=== PATIENT | male | born 1995 | race Caucasian/White ===

== ENCOUNTER 2023-01-15 06:51 | Outpatient (REF) | payer OTHER, SELFPAY ==
[2023-01-15 11:25] LABS: MANUAL DIFF FLAG NO
[2023-01-15 12:02] LABS: Basophils Percent Auto 0.4 % (0-2); Eosinophils Absolute Auto 0.2 X10*3/uL (0.0-0.4); Eosinophils Percent Auto 2.4 % (0-4); Hematocrit 44.7 % (42.0-52.0); Hemoglobin 15.4 g/dl (14.0-18.0); Imm Gran Abs Auto 0.02 X10*3/uL (0.00-0.03); Imm Gran Pct Auto 0.3 % (0.0-0.4); Lymphocytes Absolute Auto 1.7 X10*3/uL (1.2-4.9); Lymphocytes Percent Auto 24.1 % (20-40); Mean Corpuscular HGB Conc 34.5 g/dl (31.0-36.0); Mean Corpuscular Hemoglobin 30.4 pg (27.0-33.0); Mean Corpuscular Volume 88.3 fL (80.0-98.0); Mean Platelet Volume 10.1 fL (9.4-12.4); Monocytes Absolute Auto 0.9 X10*3/uL (0.1-1.2); Monocytes Percent Auto 12.8 % (2-11); Neutrophils Absolute Auto 4.3 x10*3/uL (2.0-8.3); Platelet Count 219 X10*3/uL (160-400); Red Blood Count 5.06 X10*6/uL (4.60-5.80); Red Cell Distribution Width 12.5 % (11.0-16.0); White Blood Count 7.2 X10*3/uL (4.8-10.8)
[2023-01-15 12:38] LABS: Alanine Aminotransferase 28 U/L (0-40); Albumin Level 4.4 g/dL (3.5-5.0); Alkaline Phosphatase 60 U/L (39-117); Anion Gap 12 (12-20); Aspartate Amino Transferase 24 U/L (5-37); Blood Urea Nitrogen 15 mg/dL (9-16); Calcium 9.3 mg/dL (8.4-10.2); Carbon Dioxide 27 mmol/L (22-29); Chloride 107 mmol/L (96-108); Cholesterol 201 mg/dL; Estimated Glomerular Filt Rate > 60; Glucose Fasting 90 mg/dL (60-99); HDL Cholesterol 39 mg/dL; LDL Cholesterol Calculated 138 mg/dl; Potassium 4.1 mmol/L (3.3-5.1); Sodium 142 mmol/L (135-145); TSH reflex Free T4 1.04 uIU/mL (0.32-4.0); Total Protein 6.9 g/dL (6.5-8.0); Triglycerides 123 mg/dL
== END 2023-01-15 06:52 | disposition home or self-care (01) ==
LOC: HO.HMGCLDS 06:51
PROVIDERS: PCP Nurse Practitioner Family; Visit Provider Nurse Practitioner Family
DX: Z00.00 Encounter for general adult medical examination without abnormal findings (principal)
CPT/HCPCS: 36415; 80053; 80061; 84443; 85025

== ENCOUNTER 2023-01-16 09:12 | Outpatient (REF) | payer OTHER, SELFPAY ==
[2023-01-16 16:29] LABS: Appearance Urine Clear; Color Urine Yellow; Glucose Urine UA Negative (Negative); Leukocyte Esterase Urine Negative (Negative); Nitrite Urine Negative (Negative); Urine Blood Negative (Negative); Urine Ketones Negative (Negative); Urine Protein Negative (Neg-Trace)
== END 2023-01-16 09:13 | disposition home or self-care (01) ==
LOC: HO.HMGCLDS 09:12
PROVIDERS: PCP Nurse Practitioner Family; Visit Provider Nurse Practitioner Family
DX: R82.90 Unspecified abnormal findings in urine (principal)
CPT/HCPCS: 81003

== ENCOUNTER 2024-01-25 15:32 | Outpatient (AMB) | payer OTHER, SELFPAY ==
--- NOTE | 2024-01-25 15:43 | MHC.PC.OV ---
Vital Signs 01/25/24 15:44 Height 6 ft Weight 214 lb BMI 29.0 BP 136/84 Blood Pressure Location Lt brachial Position Sitting Pulse 76 Pulse Source Pulse Oximeter Pulse Oximetry (%) 98 Oxygen Delivery Method Room Air Intake Visit Reasons: PE Intake Note: Pt is here today for PE. Allergies No Known Allergies Allergy (Verified 01/25/24 16:50) Medication List - Last Reconciled 01/25/24 by FAYE Diaz No Known Home Meds Tobacco use date assessed: 01/25/24 Dental Screening Dental Screen Date: 01/25/24 Did you have a dental visit in the last 12 months?: Yes Did you have a dental problem in the last 6 months where you did not have access to dental care?: No Was dental information given to patient?: Patient has dentist HPI PE HPI Details Pt is here for a PE. Will order labs. Pt reports a family hx of hypertension. BP is stable toda (upper limits of normal). Will have pt monitor his blood pressure at home and drop off readings. Denies chest pain, shortness of breath, headache, dizziness, and blurred vision. Pt sees derm for acne PFSH Social History Housing: House Patient Tobacco Use Status: Former Tobacco user Quit Date: quit 10 years ago e-Cigarette/Vaping Use: Never Used Second Hand Smoke Exposure: Yes service: No Current occupational status: employed Current occupational exposures/hazards: No Cognitive needs: No Hearing needs: No Vision needs: No Questionnaire PHQ-9 Over the last 2 weeks, how often have you been bothered by any of the following problems? 1. Little interest or pleasure in doing things: not at all 2. Feeling down, depressed, or hopeless: not at all 3. Trouble falling or staying asleep, or sleeping too much: not at all 4. Feeling tired or having little energy: not at all 5. Poor appetite or overeating: not at all 6. Feeling bad about yourself - or that you are a failure or have let yourself or your family down: not at all 7. Trouble concentrating on things, such as reading the newspaper or watching television: not at all 8. Moving or speaking so slowly that other people could have noticed. Or the opposite - being so fidgety or restless that you have been moving around a lot more than usual: not at all 9. Thoughts that you would be better off or of hurting yourself in some way: not at all Total score: 0 Depression Screening Interpretation: Negative Depression Screening Done: Yes 29952 - PHQ-9 Billing: Yes Source: Developed by Drs. Venkat Messer, Carole Shin, Lokesh Oropeza and colleagues, with an educational renetta from [employer]. Thrive Questionnaire Date Thrive assessed: 01/25/24 I am a: Patient What is your living situation today?: I have a steady place to live Within the past 12 months, did the food you bought not last and you didn't have the money to get more?: Never true Within the past 12 months, did you worry whether your food would run out before you got money to buy more?: Never true Do you have trouble paying for medicines?: No Do you have trouble getting transportation to medical appointments?: No Do you have trouble paying your heating and electricity bill?: No Do you have trouble taking care of your child, family member or friend?: No Do you have trouble with day-to-day activities such as bathing, preparing meals, shopping, managing finances, etc.?: No Are you currently unemployed and looking for a job?: No Are you interested in more education?: No Please select the resources that you would like help with: None Currently or been in a relationship where the following occur: no concerns reported THRIVE Score: 0 AUDIT C Alcohol Use Questionnaire (AUDIT-C) 1. How often do you have a drink containing alcohol?: 2-4 times a month 2. How many drinks containing alcohol do you have on a typical day when you are drinking?: 1 or 2 3. How often do you have six or more drinks on one occasion?: Never Total Score: 2 Score Reviewed/Action Taken: Yes TYRA-7 AMB Questionnaire TYRA-7 Date TYRA - 7 assessed: 01/25/24 Feeling nervous, anxious, or on edge: 0 = Not at all Not being able to stop or control worryin = Not at all Worrying too much about different things: 0 = Not at all Trouble relaxin = Not at all Being so restless that it is hard to sit still: 0 = Not at all Becoming easily annoyed or irritable: 0 = Not at all Feeling afraid as if something awful might happen: 0 = Not at all Total TYRA-7 score (0-4 normal; 5-9 mild; 10-14 moderate; 15-21 severe): 0 Source: Developed by Drs. Venkat Messer, Carole Shin, Lokesh Oropeza and colleagues, with an educational renetta from [employer]. TYRA-7 Assessment Billing TYRA-7 Assessment Tool: TYRA-7 Assessment 03028 Review of Systems Const Denies chills and Denies fever(s) Eyes Denies blurry vision ENT Denies vertigo, Denies dizziness and Denies sore throat Card Denies chest pain at rest, Denies chest pain with activity, Denies diaphoresis, Denies dyspnea and Denies dyspnea on exertion Resp Denies cough, Denies dyspnea, Denies dyspnea on exertion and Denies wheezing GI Denies abdominal pain, Denies melena, Denies hematochezia, Denies constipation, Denies diarrhea and Denies loose stools Denies hematuria Musc Denies numbness and Denies tingling Skin/Breast Denies lesions Neuro Denies vertigo, Denies dizziness, Denies numbness and Denies tingling Psych Denies anxiety, Denies depression, Denies homicidal ideation, Denies suicidal ideation and Denies other (substance abuse) Aller/Immun Denies wheezing Physical exam (Primary Care) Vital Signs: Last Vital Signs Pulse 76 01/25/24 15:44 BP 136/84 01/25/24 15:44 Pulse Ox 98 01/25/24 15:44 Oxygen Delivery Method Room Air 01/25/24 15:44 BMI result Body Mass Index 29.0 Tobacco/Smoking Status: Tobacco use Status Tobacco use date assessed 01/25/24 01/25/24 15:48 Patient Tobacco Use Status Former Tobacco user 01/25/24 15:48 e-Cigarette/Vaping Use Never Used 01/25/24 15:48 PHQ-9: PHQ-9 Score PHQ-9: Total score 0 01/25/24 16:21 Depression Screening Interpretation: Negative Thrive Assessment: Date of Thrive Assessment Date Thrive assessed 01/25/24 01/25/24 15:49 Currently or been in a relationship where the following occur: no concerns reported Const General: cooperative Nutritional Appearance: well nourished Orientation/consciousness: patient oriented x3 HENMT Head: Yes normal to inspection, Yes normocephalic and Yes atraumatic Ears: TM's normal bilaterally Eyes General: appearance normal, both eyes and all related structures Alignment and Position: alignment normal and position normal Neck Neck: Yes normal visual inspection and Yes no lymphadenopathy Thyroid: Thyroid normal Resp Effort & Inspection: normal respiratory effort Auscultation: clear to auscultation bilaterally Cardio Rate: regular rate Rhythm: regular rhythm Heart sounds: S1 normal heart sound present, S2 normal heart sound present and no murmurs GI Palpation (GI): Soft to palpation and nontender Auscultation: normal bowel sounds Male General Exam: Yes normal external exam Penis: normal penis Scrotum: scrotum normal, testes descended bilaterally and no inguinal hernias Testes: no testicular mass Skin Rashes: no rashes Neuro General: patient oriented x3, moves all extremities, no focal motor deficits and deep tendon reflexes 2+ bilaterally Romberg Test: Negative Psych Appearance: grossly normal Mental Status: mental status grossly normal Speech and movement: Normal speech and movement present Affect: normal affect Attitude: cooperative Thought process: Normal thought process present Thought content: Normal thought content present Insight: Good insight present (Psych) Judgement: Good judgement present (Psych) Assessment and Plan Assessment & Plan (1) Physical exam: Code(s): Z00.00 - Encounter for general adult medical examination without abnormal findings Plan: Labs ordered (2) Elevated blood pressure reading in office with diagnosis of hypertension: Code(s): I10 - Essential (primary) hypertension Plan The patient agreed to the use of a regional medical director for this encounter. Scribed for FAYE Vazquez by Nevaeh Jefferson regional medical director, on 01/25/2024 at 16:10 EST. Orders: Orders Complete Blood Count Auto Diff Today Z00.00 - Encounter for general adult medical examination without abnormal findings TSH reflex Free T4 Today Z00.00 - Encounter for general adult medical examination without abnormal findings Comprehensive [place]. Panel Fast Today Z00.00 - Encounter for general adult medical examination without abnormal findings UA CC w/rflx Micro + Cult Today Z00.00 - Encounter for general adult medical examination without abnormal findings Lipid Panel Today Z00.00 - Encounter for general adult medical examination without abnormal findings Coding Level of Care Code Est Pt Prev Care 18-39y(79131) Diagnoses Physical exam Z00.00 Elevated blood pressure reading in office with diagnosis of hypertension I10 Additional Codes TYRA-7 Assessment Billing - TYRA-7 Assessment Tool: TYRA-7 Assessment 80847 ([id number])
[2024-01-25 15:44] VITALS: BP 136/84; PULSE 76; O2SAT 98; BMI 29.0
== END 2024-01-25 16:29 | disposition home or self-care (01) ==
PROVIDERS: Visit Provider Nurse Practitioner Family
DX: Z00.00 Encounter for general adult medical examination without abnormal findings (principal); I10 Essential (primary) hypertension
CPT/HCPCS: 99395

== ENCOUNTER 2024-01-28 07:05 | Outpatient (REF) | payer OTHER, SELFPAY ==
[2024-01-28 11:06] LABS: MANUAL DIFF FLAG NO
[2024-01-28 11:09] LABS: Appearance Urine Clear; Color Urine Yellow; Glucose Urine UA Negative (Negative); Leukocyte Esterase Urine Trace (Negative); Nitrite Urine Negative (Negative); PH 6.5 (5.0-9.0); UMIC TRIGGER UACC YES; Urine Blood Negative (Negative); Urine Ketones Negative (Negative); Urine Protein Negative (Neg-Trace)
[2024-01-28 11:16] LABS: Bacteria Urine None Seen (None Seen); Hyaline Casts Urine 0-2 /LPF (0-2); RBC Urine 0-2 /HPF (0-2); Squamous Epithelial Cell Urine 0-2 /HPF (0-2); WBC Urine 0-5 /HPF (0-5)
[2024-01-28 11:18] LABS: Basophils Percent Auto 0.5 % (0-2); Eosinophils Absolute Auto 0.2 X10*3/uL (0.0-0.4); Eosinophils Percent Auto 1.8 % (0-4); Hemoglobin 16.8 g/dl (14.0-18.0); Imm Gran Abs Auto 0.03 X10*3/uL (0.00-0.03); Imm Gran Pct Auto 0.4 % (0.0-0.4); Lymphocytes Absolute Auto 2.1 X10*3/uL (1.2-4.9); Lymphocytes Percent Auto 25.3 % (20-40); Mean Corpuscular HGB Conc 35.7 g/dl (31.0-36.0); Mean Corpuscular Hemoglobin 31.3 pg (27.0-33.0); Mean Corpuscular Volume 87.7 fL (80.0-98.0); Monocytes Absolute Auto 0.8 X10*3/uL (0.1-1.2); Monocytes Percent Auto 10.1 % (2-11); Neutrophils Percent Auto 61.9 % (45-73); Platelet Count 196 X10*3/uL (160-400); Red Blood Count 5.36 X10*6/uL (4.60-5.80); Red Cell Distribution Width 12.1 % (11.0-16.0); White Blood Count 8.1 X10*3/uL (4.8-10.8)
[2024-01-28 11:59] LABS: Alanine Aminotransferase 37 U/L (0-40); Albumin Level 4.3 g/dL (3.5-5.0); Alkaline Phosphatase 65 U/L (39-117); Anion Gap 14 (12-20); Aspartate Amino Transferase 23 U/L (5-37); Bilirubin Total 0.8 mg/dL (0.0-1.0); Blood Urea Nitrogen 13 mg/dL (9-16); Calcium 9.7 mg/dL (8.4-10.2); Carbon Dioxide 25 mmol/L (22-29); Chloride 105 mmol/L (96-108); Cholesterol 197 mg/dL (<200); Estimated Glomerular Filt Rate > 60; Glucose Fasting 89 mg/dL (60-99); HDL Cholesterol 39 mg/dL (>40); LDL Cholesterol Calculated 133 mg/dL (<100); Potassium 4.3 mmol/L (3.3-5.1); Sodium 140 mmol/L (135-145); TSH reflex Free T4 1.14 uIU/mL (0.32-4.0); Total Protein 7.3 g/dL (6.5-8.0); Triglycerides 127 mg/dL (<150)
== END 2024-01-28 07:06 | disposition home or self-care (01) ==
LOC: HO.HMGCLDS 07:05
PROVIDERS: PCP Nurse Practitioner Family; Visit Provider Nurse Practitioner Family
DX: Z00.00 Encounter for general adult medical examination without abnormal findings (principal); Z13.6 Encounter for screening for cardiovascular disorders
CPT/HCPCS: 36415; 80053; 80061; 81001; 84443; 85025

== ENCOUNTER 2025-03-01 16:05 | Outpatient (AMB) | payer OTHER, SELFPAY ==
--- NOTE | 2025-03-01 16:10 | A.OFFPC_ITS ---
Vital Signs 03/01/25 16:11 Height 6 ft Weight 209 lb BMI 28.3 BP 118/70 Blood Pressure Location Lt brachial Position Sitting Respiration 18 Pulse 69 Pulse Source Pulse Oximeter Temp 98.5 F Temp Source Oral Pulse Oximetry (%) 97 Oxygen Delivery Method Room Air Intake Visit Reasons: CPE Intake Note: Pt is here today for PE. Allergies No Known Allergies Allergy (Verified 03/01/25 16:30) Medication List - Last Reconciled 03/01/25 by ARACELIS Diaz clindamycin-benzoyl peroxide 1.2 %(1 % base) -5 % 1 appl topical DAILY doxycycline monohydrate 1 cap PO DAILY tretinoin 0.1% 1 appl topical BEDTIME Tobacco use date assessed: 03/01/25 Dental Screening Dental Screen Date: 03/01/25 Did you have a dental visit in the last 12 months?: Yes Did you have a dental problem in the last 6 months where you did not have access to dental care?: No Was dental information given to patient?: Patient has dentist HPI CPE HPI Details History of Present Illness The patient is a 29-year-old male presenting with right shoulder pain associated with a previous right acromioclavicular (AC) joint separation that occurred during a skiing accident in November 2024. The patient received an orthopedic evaluation and X-rays which indicated the separation did not require surgery. Despite this, the patient continues to experience tenderness on palpation of the joint and weakness in his right arm, notably affecting his work as he is right- hand dominant. He experiences difficulty with anterior and lateral raises against resistance. The patient also reports being informed of a diagnosis of obstructive sleep apnea, notably characterized by snoring and episodes of apnea observed by his partner during sleep. Health Maintenance - Plan for a home sleep study to evaluat e sleep apnea. Social History - Employment: [employer] - Dominance: Right-hand dominant Review of Systems - Musculoskeletal: Reports right shoulde r pain and weakness - Respiratory: Denies chest pain, shortn ess of breath - Gastrointestinal: Denies abdominal concha n, constipation, diarrhea, nausea, vomiting - General: Reports doing well overall - Neurological: Reports sleep apnea -denies any si or hi Physical Exam General: Cooperative, healthy appearing, comfortable, no acute distress and well developed Orientation: Patient oriented x3 Limitations: Weakness to right upper extremity with lifting, anterior raises against resistance, and lateral raises against resistance Head: Normal to inspection Ears: Hearing grossly normal bilaterally Nose: Normal external nose present Face and sinus: Normal facial exam Eyes: Appearance normal, both eyes and all related structures Neck: Normal visual inspection and Yes full ROM Respiratory: Normal respiratory effort and able to speak in complete sentences. Clear to auscultation bilaterally Cardiovascular: Regular rate and rhythm. Normal S1 and S2 GI: Normal to inspection. Soft to palpation and nontender Skin: No rashes or lesions noted Neuro: Patient oriented x3 Extremities: Tenderness to the right AC joint with palpation. Weakness noted in right upper extremity with lifting, anterior raises against resistance, and lateral raises against resistance, with tenderness during ROM assessment. Results - X-rays of right shoulder (Previously c ompleted, specific results not provided) Plan I will refer the patient for physical therapy to address the ongoing weakness and tenderness related to the right AC joint separation. A follow-up X-ray is planned to assist in evaluating the current state of the joint, potentially leading to a referral to an admission specialist for further assessment. In addressing the patient's obstructive sleep apnea, a home sleep study will be conducted to guide management. Discussion Notes I discussed with the patient the importance of physical therapy in the rehabilitation of his right AC joint separation to enhance function and reduce symptoms. I explained that an updated X-ray will help determine if further orthopedic consultation is necessary and PT. Regarding his sleep apnea, I consented to arranging a home sleep study, which will provide valuable data to tailor his treatment plan. Patient Instructions - Follow up with recommended physical th erapy sessions for shoulder rehabilit ation, pt will contact me via the portal with how he is doing after PT. - Schedule and complete the home sleep s tudy for sleep apnea assessment. - Report any changes or new symptoms rel ated to shoulder or sleep issues promptly. [facility] Social History Housing: House Patient Tobacco Use Status: Former Tobacco user e-Cigarette/Vaping Use: Never Used Second Hand Smoke Exposure: Yes service: No Current occupational status: employed Current occupational exposures/hazards: No Cognitive needs: No Hearing needs: No Vision needs: No Questionnaire PHQ-9 Over the last 2 weeks, how often have you been bothered by any of the following problems? 1. Little interest or pleasure in doing things: not at all 2. Feeling down, depressed, or hopeless: not at all 3. Trouble falling or staying asleep, or sleeping too much: not at all 4. Feeling tired or having little energy: not at all 5. Poor appetite or overeating: not at all 6. Feeling bad about yourself - or that you are a failure or have let yourself or your family down: not at all 7. Trouble concentrating on things, such as reading the newspaper or watching television: not at all 8. Moving or speaking so slowly that other people could have noticed. Or the opposite - being so fidgety or restless that you have been moving around a lot more than usual: not at all 9. Thoughts that you would be better off or of hurting yourself in some way: not at all Total score: 0 Depression Screening Interpretation: Negative Depression Screening Done: Yes 70917 - PHQ-9 Billing: Yes Source: Developed by Drs. Venkat Messer, Carole Shin, Lokesh Oropeza and colleagues, with an educational renetta from [email or web address]. Thrive Questionnaire Date Thrive assessed: 03/01/25 I am a: Patient What is your living situation today?: I have a steady place to live Within the past 12 months, did the food you bought not last and you didn't have the money to get more?: Never true Within the past 12 months, did you worry whether your food would run out before you got money to buy more?: Never true Do you have trouble paying for medicines?: No Do you have trouble getting transportation to medical appointments?: No Do you have trouble paying your heating and electricity bill?: No Do you have trouble taking care of your child, family member or friend?: No Do you have trouble with day-to-day activities such as bathing, preparing meals, shopping, managing finances, etc.?: No Are you currently unemployed and looking for a job?: No Are you interested in more education?: No Please select the resources that you would like help with: None Currently or been in a relationship where the following occur: No concerns reported THRIVE Score: 0 AUDIT C Alcohol Use Questionnaire (AUDIT-C) 1. How often do you have a drink containing alcohol?: 2-4 times a month 2. How many drinks containing alcohol do you have on a typical day when you are drinking?: 3 or 4 3. How often do you have six or more drinks on one occasion?: Less than monthly Total Score: 4 Score Reviewed/Action Taken: Yes TYRA-7 AMB Questionnaire TYRA-7 Date TYRA - 7 assessed: 03/01/25 Feeling nervous, anxious, or on edge: 0 = Not at all Not being able to stop or control worryin = Not at all Worrying too much about different things: 0 = Not at all Trouble relaxin = Not at all Being so restless that it is hard to sit still: 0 = Not at all Becoming easily annoyed or irritable: 0 = Not at all Feeling afraid as if something awful might happen: 0 = Not at all Total TYRA-7 score (0-4 normal; 5-9 mild; 10-14 moderate; 15-21 severe): 0 Source: Developed by Drs. Venkat Messer, Carole Shin, Lokesh Oropeza and colleagues, with an educational renetta from [email or web address]. TYRA-7 Assessment Billing TYRA-7 Assessment Tool: TYRA-7 Assessment 10523 Physical exam (Primary Care) Vital Signs: Last Vital Signs Temp 98.5 F 03/01/25 16:11 Pulse 69 03/01/25 16:11 Resp 18 03/01/25 16:11 BP 118/70 03/01/25 16:11 Pulse Ox 97 03/01/25 16:11 Oxygen Delivery Method Room Air 03/01/25 16:11 BMI result Body Mass Index 28.3 Tobacco/Smoking Status: Tobacco use Status Tobacco use date assessed 03/01/25 03/01/25 16:17 Patient Tobacco Use Status Former Tobacco user 03/01/25 16:17 e-Cigarette/Vaping Use Never Used 03/01/25 16:17 PHQ-9: PHQ-9 Score PHQ-9: Total score 0 03/01/25 16:17 Depression Screening Interpretation: Negative Thrive Assessment: Date of Thrive Assessment Date Thrive assessed 03/01/25 03/01/25 16:17 Currently or been in a relationship where the following occur: No concerns reported Coding Level of Care Code Est Pt Prev Care 18-39y(57074) Diagnoses Physical exam Z00.00 Sleep apnea G47.30 Injury of right acromioclavicular joint S49.91XA Additional Codes TYRA-7 Assessment Billing - TYRA-7 Assessment Tool: TYRA-7 Assessment 17307 ([id number]) PHQ-9 - 85824 - PHQ-9 Billing: Yes ([id number]) Assessment & Plan Assessment & Plan (1) Physical exam: Code(s): Z00.00 - Encounter for general adult medical examination without abnormal findings Category: Medical (2) Sleep apnea: Code(s): G47.30 - Sleep apnea, unspecified Category: Medical (3) Injury of right acromioclavicular joint: Code(s): S49.91XA - Unspecified injury of right shoulder and upper arm, initial encounter Category: Medical Plan . Orders: Orders Complete Blood Count Auto Diff 02/17/25 Z00.00 - Encounter for general adult medical examination without abnormal findings Comprehensive [place]. Panel Fast 02/17/25 Z00.00 - Encounter for general adult medical examination without abnormal findings PT Evaluation and Treatment Today S49.91XA - Unspecified injury of right shoulder and upper arm, initial encounter XR shoulder RT min 2V Today S49.91XA - Unspecified injury of right shoulder and upper arm, initial encounter Lipid Panel 02/17/25 Z00.00 - Encounter for general adult medical examination w ithout abnormal findings TSH reflex Free T4 02/17/25 Z00.00 - Encounter for general adult medical examination without abnormal findings UA CC w/rflx Micro + Cult 02/17/25 Z00.00 - Encounter for general adult medical examination without abnormal findings Vitamin D 25-OH Total 02/17/25 Z00.00 - Encounter for general adult medical examination without abnormal findings RT home sleep study Today G47.30 - Sleep apnea, unspecified
[2025-03-01 16:11] VITALS: BP 118/70; PULSE 69; RESP 18; TEMP 36.9; O2SAT 97; BMI 28.3
--- OUTSIDE RECORDS SUMMARY | 2025-03-01 18:31 | XMS_ITS | Clinical Summary ---
Author Organization [facility] ity Address [address] [place] [address] Care Team Providers Care Screedman/Laborer Name Role Phone Unavailable Primary Care Provider Unavailabl e Social History Tobacco Use Types Packs/Day Years Used Date Smoking Tobacco: Never Assessed Sex and Gender Information Value Date Recorded Sex Assigned at Not on file Legal Sex Male 8:13 PM EST Gender Identity Not on file Sexual Orientation Not on file Plan of Treatment Health Maintenance Due Date Last Done Comments DTaP,Tdap,and Td Vaccines (1 - Tdap) 2012 Hepatitis B Vaccines (1 of 3 - 19+ 3-dose series) 2012 COVID-19 Vaccine (2023-2 5 season) 2024 Influenza Vaccine (Season Ended) 2025 HIB Vaccines Aged Out No longer eligi ble based on patient's age to complete this topic HPV Vaccines Aged Out No longer eligi ble based on patient's age to complete this topic Hepatitis A Vaccines Aged Out No long er eligible based on patient's age to complete this topic IPV Vaccines Aged Out No longer eligi ble based on patient's age to complete this topic MMR Vaccines Aged Out No longer eligi ble based on patient's age to complete this topic Meningococcal ACWY Vaccine Aged Out N o longer eligible based on patient's age to complete this topic Meningococcal B Vaccine Aged Out No l onger eligible based on patient's age to complete this topic Pneumococcal Vaccine: Pediat rics (0 to 5 Years) and At-Risk Patients (6 to 64 Years) Aged Out No longer eligible b ased on patient's age to complete this topic RSV Immunization Patients Un jared 20 months Aged Out No longer eligible b ased on patient's age to complete this topic Varicella Vaccines Aged Out No longer eligible based on patient's age to complete this topic
--- OUTSIDE RECORDS SUMMARY | 2025-03-01 18:31 | XMS_ITS | Clinical Summary ---
Author Organization [facility] Address [address] [place] [address] Care Team Providers Care Financial Administrative Assistant Name Role Phone Flo Hobbs MD Primary Care Provider Allergies No known active allergies Immunizations Immunization Administration Dates Next Due Rabies Diploid Cell (IMOVAX) 04/11/2024,04/11/20 24,04/07/2024,04/04/2024 Rabies Immune Globulin 04/04/2024 Social History Tobacco Use Types Packs/Day Years Used Date Smoking Tobacco: Never Assessed Sex and Gender Information Value Date Recorded Sex Assigned at Male 04/04/2024 4:11 AM EDT Legal Sex Male 4:04 AM EDT Gender Identity Male 04/04/2024 4:11 AM EDT Sexual Orientation Heterosexual (straight) 04/04 4:11 AM EDT Last Filed Vital Signs Vital Sign Reading Time Taken Comments Blood Pressure 143/84 04/04/2024 4:08 AM EDT Pulse 88 04/04/2024 4:08 AM EDT Temperature 36.2 ??C (97.2 ??F) 04/04/2024 4:08 AM ED T Respiratory Rate 16 04/04/2024 4:08 AM EDT Oxygen Saturation 99% 04/04/2024 4:08 AM EDT Inhaled Oxygen Concentration - - Weight 89.4 kg (197 lb) 04/04/2024 4:39 AM EDT Height - - Body Mass Index - - Plan of Treatment Health Maintenance Due Date Last Done Comments Hepatitis C Virus Screening 1993 HIV Screening 2006 DTaP/Tdap/Td Vaccines (1 - Tdap) 2012 Hepatitis B Vaccines (1 of 3 - 19+ 3-dose series) 2012 Influenza Vaccine 06/09/2024 COVID-19 Vaccine (2023-2 5 season) 2024 HPV Vaccines Aged Out No longer eligi ble based on patient's age to complete this topic Pneumococcal Vaccine: Pediat ti (0-5 Years) and At-Risk Patients (6 to 49 Years) Aged Out No longer eligible b ased on patient's age to complete [place] [id number] [facility] Care Teams Financial Administrative Assistant Relationship Specialty Start Date End Date Flo Hobbs MD [address] [place] [address] PCP - General Family Medicine 04/04/24
--- OUTSIDE RECORDS SUMMARY | 2025-03-01 18:31 | XMS_ITS ---
Author Name [facility] Organization Unknown Problems Problem Status Onset Date Problem Type Date of Resoluti on Source Need for vaccination active [facility] Immun[facility] Vaccine Date Source Lot Number Status Rabies Diploid Cell (IMOVAX) 04/11/2024 [facility] [id number] completed Rabies Diploid Cell (IMOVAX) 04/07/2024 [facility] [id number] completed Rabies Diploid Cell (IMOVAX) 04/04/2024 [facility] [id number] completed Rabies Immune Globulin 04/04/2024 [facility] [id number] co mpleted Encounters Encounter Type Encounter Reason Primary Diagnosis Location Date Ambulatory Encounter for immunization Encounter for immunization [facility] 04/11/2024 Ambulatory Encounter for immunization Encounter for immunization [facility] 04/07/2024 Emergency Contact with and (suspected) exposure to unspecified communicable disease Contact with and (suspected) exposure to unspecified communicable disease [facility] 04/04/2024 Care Team Organization Name Specialty Phone Email Start Date End Da te [facility] 04/04/2024 01/25/2025 [facility] 04/04/2024 [facility]OLDO WOOD Primary Care 04/04/2024
== END 2025-03-01 16:53 | disposition home or self-care (01) ==
LOC: HO.HMCC 16:06
PROVIDERS: PCP Nurse Practitioner Family; Visit Provider Nurse Practitioner Family
DX: Z00.00 Encounter for general adult medical examination without abnormal findings (principal); G47.30 Sleep apnea, unspecified; S49.91XA Unspecified injury of right shoulder and upper arm, initial encounter

== ENCOUNTER → 2025-03-01 16:05 | Outpatient (BNVA) | payer OTHER, SELFPAY | PROVIDERS: PCP Nurse Practitioner Family; Visit Provider Nurse Practitioner Family | DX: Z00.00 Encounter for general adult medical examination without abnormal findings (principal); G47.30 Sleep apnea, unspecified; S43.101D Unspecified dislocation of right acromioclavicular joint, subsequent encounter; X58.XXXD Exposure to other specified factors, subsequent encounter | CPT/HCPCS: 96127 ==

== ENCOUNTER 2025-04-22 09:47 | Outpatient (REF) | payer OTHER, SELFPAY ==
--- NOTE | ~2025-04-22 | XR_ITS ---
CLINICAL HISTORY: S49.91XA - Unspecified injury of right shoulder and upper arm, initial e... Exam: AP, Grashey, and scapular y-views of the right shoulder. Comparison: None. Findings: Abnormal widening of the acromioclavicular distance to 14 mm. Coracoclavicular distance is increased to 19 mm. There superior positioning distal clavicle in relation to the distal acromion and the coracoid process. 3 mm well corticated ossification adjacent to the distal clavicle. No acute fracture. Glenohumeral joint is well-maintained. Impression: Grade 3 shoulder separation. This document has been electronically signed by: Zev Matthews MD on 04/24/2025 09:02:18
--- OUTSIDE RECORDS SUMMARY | 2025-04-22 09:50 | XMS_ITS | Clinical Summary ---
Author Organization [facility] Address [address] [place] [address] Care Team Providers Care Shochet Name Role Phone Flo Hobbs MD Primary [...] Vaccine (2023-2 5 season) 2024 Influenza Vaccine 06/09/2025 HPV Vaccines Aged Out No longer eligi ble based on patient's age to complete this topic Pneumococcal Vaccine: Pediat ti (0-5 Years) and At-Risk Patients (6 to 49 Years) Aged Out No longer eligible b ased on patient's age to [place] [id number] [facility] Care Teams Shochet Relationship Specialty Start Date End Date Flo Hobbs MD [address] [place] [address] PCP - General Family Medicine 04/04/24
[2025-04-22 11:14] LABS: MANUAL DIFF FLAG NO
[2025-04-22 11:19] LABS: Appearance Urine Clear; Color Urine Yellow; Glucose Urine UA Negative (Negative); Leukocyte Esterase Urine Negative (Negative); Nitrite Urine Negative (Negative); PH 5.5 (5.0-9.0); Urine Blood Negative (Negative); Urine Ketones Negative (Negative); Urine Protein Negative (Neg-Trace)
[2025-04-22 11:27] LABS: Basophils Percent Auto 0.4 % (0-2); Eosinophils Absolute Auto 0.1 X10*3/uL (0.0-0.4); Eosinophils Percent Auto 1.8 % (0-4); Hematocrit 45.9 % (42.0-52.0); Hemoglobin 16.1 g/dl (14.0-18.0); Imm Gran Abs Auto 0.02 X10*3/uL (0.00-0.03); Imm Gran Pct Auto 0.3 % (0.0-0.4); Mean Corpuscular HGB Conc 35.1 g/dl (31.0-36.0); Mean Corpuscular Hemoglobin 30.4 pg (27.0-33.0); Mean Corpuscular Volume 86.6 fL (80.0-98.0); Monocytes Absolute Auto 0.7 X10*3/uL (0.1-1.2); Monocytes Percent Auto 9.7 % (2-11); Neutrophils Absolute Auto 4.3 x10*3/uL (2.0-8.3); Neutrophils Percent Auto 59.8 % (45-73); Platelet Count 225 X10*3/uL (160-400); Red Cell Distribution Width 12.3 % (11.0-16.0); White Blood Count 7.2 X10*3/uL (4.8-10.8)
[2025-04-22 12:03] LABS: Alanine Aminotransferase 45 U/L (0-40); Albumin Level 4.6 g/dL (3.5-5.0); Alkaline Phosphatase 58 U/L (39-117); Anion Gap 11 (12-20); Aspartate Amino Transferase 32 U/L (5-37); Bilirubin Total 0.8 mg/dL (0.0-1.0); Blood Urea Nitrogen 20 mg/dL (9-16); Calcium 9.6 mg/dL (8.4-10.2); Carbon Dioxide 25 mmol/L (22-29); Chloride 108 mmol/L (96-108); Cholesterol 177 mg/dL (<200); Estimated Glomerular Filt Rate > 60; Glucose Fasting 90 mg/dL (60-99); HDL Cholesterol 39 mg/dL (>40); LDL Cholesterol Calculated 124 mg/dL (<100); Potassium 4.1 mmol/L (3.3-5.1); Sodium 140 mmol/L (135-145); TSH reflex Free T4 0.63 uIU/mL (0.32-4.0); Total Protein 7.1 g/dL (6.5-8.0); Triglycerides 72 mg/dL (<150); Vitamin D 25-OH Total 63.8 ng/mL (>30)
== END 2025-04-22 09:48 | disposition home or self-care (01) ==
LOC: HO.HMGCX 09:47
PROVIDERS: PCP Nurse Practitioner Family; Visit Provider Nurse Practitioner Family
DX: Z00.00 Encounter for general adult medical examination without abnormal findings (principal); S43.111A Subluxation of right acromioclavicular joint, initial encounter; X58.XXXA Exposure to other specified factors, initial encounter; Y93.9 Activity, unspecified; Y92.9 Unspecified place or not applicable; Y99.9 Unspecified external cause status
CPT/HCPCS: 36415; 73030; 80053; 80061; 81003; 82306; 84443; 85025

== ENCOUNTER → 2025-04-22 09:54 | Outpatient (BNV) | payer OTHER, SELFPAY | PROVIDERS: PCP Nurse Practitioner Family; Visit Provider Radiology Diagnostic Radiology | DX: S49.91XA Unspecified injury of right shoulder and upper arm, initial encounter (principal) | CPT/HCPCS: 73030 ==

== ENCOUNTER 2025-05-30 08:28 | Outpatient (REF) | payer OTHER, SELFPAY ==
--- NOTE | ~2025-05-30 | US_ITS ---
CLINICAL HISTORY: R74.8 - Abnormal levels of other serum enzymes --- Additional Notes or Special Instructions: Elevated liver enzymes US abdomen complete Comparison: None provided Findings: The visualized pancreas is normal. The aorta and inferior vena cava are normal caliber. Liver is 14.8 cm in length. There is no intrahepatic bile duct dilatation. Common bile duct measures 0.3 cm in diameter. Sonographic Brown's sign is negative. Gallbladder wall thickness is normal measuring 0.2 cm. The main portal vein Demonstrates color Doppler flow Right kidney is 10.2 cm in length. Left kidney is 11.7 cm in length. Spleen is 11.3 cm in length. No ascites. IMPRESSION: 1. Normal complete abdominal ultrasound. This document has been electronically signed by: Delvis Barnett DO on 05/31/2025 09:39:16
--- OUTSIDE RECORDS SUMMARY | 2025-05-30 08:45 | XMS_ITS | Clinical Summary ---
Author Organization [facility] Address [address] [place] [address] Care Team Providers Care Invoice Checker Name Role Phone Flo Hobbs MD Primary Care Provider [phone] Allergies No known active allergies Immunizations Immunization [...] 88 04/04/2024 4:08 AM EDT Temperature 36.2 C (97.2 F) 04/04/2024 4:08 AM EDT Respiratory Rate 16 04/04/2024 4:08 AM EDT [...] complete [place] [id number] [facility] Care Teams Invoice Checker Relationship Specialty Start Date End Date Flo Hobbs MD [address] [place] [address] PCP - General Family Medicine 04/04/24
--- OUTSIDE RECORDS SUMMARY | 2025-05-30 08:45 | XMS_ITS | Clinical Summary ---
Author Organization [facility] Address [address] [place] [address] Care Team Providers Care Culinary Specialist Name Role Phone Unavailable Primary Care Provider [...] 2012 COVID-19 Vaccine (2023-2 5 season) 2024 Depression Screening 11/09/2024 Influenza Vaccine (#1) 2025 HIB Vaccines Aged Out No longer [...] 5 Years) and At-Risk Patients (6 to 49 [...]
--- OUTSIDE RECORDS SUMMARY | 2025-05-30 08:45 | XMS_ITS ---
Author Name [facility] Organization Unknown Problems Problem Status Onset Date Problem Type Date of Resoluti on Source Need for vaccination active EncounterDiagnosisA ct [facility] Immunizations Vaccine Date Source Lot Number Status Rabies Diploid Cell (IMOVAX) 04/11/2024 [facility] [id number] completed Rabies Diploid Cell (IMOVAX) 04/07/2024 [facility] [id number] completed Rabies Diploid Cell (IMOVAX) 04/04/2024 [facility] [id number] completed Rabies Immune Globulin 04/04/2024 [facility] [id number] co mpleted Encounters Encounter Type Encounter Reason Primary Diagnosis Location Date Ambulatory Encounter for immunization Encounter for immunization [facility] 04/11/2024 Ambulatory Encounter for immunization Encounter for immunization [facility] 04/07/2024 Emergency Contact with and (suspected) exposure to unspecified communicable disease Contact with and (suspected) exposure to unspecified communicable disease [facility] 04/04/2024 Care Team Organization Name Specialty Phone Email Start Date End Da te [facility] 04/04/2024 01/25/2025 [facility] 04/04/2024 [facility] AROLDO WOOD Primary Care 04/04/2024
[2025-05-30 11:55] LABS: HBS Num1 141.64 mIU/mL (0-7.99); HBc Num1 0.10 S/CO (0.00-0.79); HBsAGNum1 0.33 S/CO (0.00-0.99); Hepatitis A Antibody IgM 0.23 Index (0-0.79); Hepatitis B Surface Antigen Negative (Negative); ~HepC Num1 0.12 S/CO (0.00-0.79); ~Hepatitis A Antibody IgM Nonreactive (Nonreactive); ~Hepatitis B Surface Antibody REACTIVE (Nonreactive); ~Hepatitis C Antibody Nonreactive (Nonreactive)
== END 2025-05-30 08:29 | disposition home or self-care (01) ==
LOC: HO.HMGCX 08:28
PROVIDERS: PCP Nurse Practitioner Family; Visit Provider Nurse Practitioner Family
DX: Z11.59 Encounter for screening for other viral diseases (principal); R74.8 Abnormal levels of other serum enzymes
CPT/HCPCS: 36415; 76700; 86704; 86706; 86709; 86803; 87340

== ENCOUNTER → 2025-05-30 08:31 | Outpatient (BNV) | payer OTHER, SELFPAY | PROVIDERS: PCP Nurse Practitioner Family; Visit Provider Family Medicine | DX: R74.8 Abnormal levels of other serum enzymes (principal) | CPT/HCPCS: 76700 ==

== ENCOUNTER 2025-06-05 08:49 | Outpatient (AMB) | payer OTHER, SELFPAY ==
[2025-06-05 08:54] VITALS: BMI 28.3
--- NOTE | 2025-06-05 08:54 | MHC.OFFVIS ---
Vital Signs 06/05/25 08:54 06/05/25 08:55 Height 6 ft 6 ft Weight 209 lb 209 lb BMI 28.3 28.3 Intake Visit Reasons: New Pt - Right AC Joint Separation Intake Note: Marco is a 30 year old right hand dominant male who presents today as a New Patient with complaints of Right Shoulder Pain. Patient reports a skiing accident in 2018 resulting in an AC Joint Separation. he was evaluated by an Orthopedist who stated that he did not require surgical intervention. He currently complains of pain, worse with ROM and Palpitation. Patient reports no pain, however he is complaining of weakness and instability. Denies any previous treatment, however he had xrays taken. He was seen at [facility] where he was told he had a type 2 separation. At his primary care he had xrays done where it was determined he had a type 3 separation, where they referred him here. Allergies No Known Allergies Allergy (Verified 06/05/25 09:02) HPI HPI New Pt - Right AC Joint Separation: Details: This is a 30-year-old gentleman who injured his right shoulder in 2018 resulting in an AC Joint Separation. He was evaluated by an Orthopedist who stated that he did not require surgical intervention. He currently complains of feeling like ?something is wrong?. He denies numbness tingling. He denies pain. He states that he feels like when lifts things he notices that his right shoulder drops to a lower level of in his left and this bothers him. He is worried about heavy lifting. He feels that he has never fully recovered. He works as a lift operator . Denies any previous treatment, however he had xrays taken. He was seen by an outside orthopedist and nonsurgical management was recommended. Comes in today with a referral from his primary care. [facility] Social History Housing: House Patient Tobacco Use Status: Former Tobacco user e-Cigarette/Vaping Use: Never Used Second Hand Smoke Exposure: Yes service: No Current occupational status: employed Current occupational exposures/hazards: No Cognitive needs: No Hearing needs: No Vision needs: No Physical Exam Vital Signs: BMI result Body Mass Index 28.3 Const General: cooperative, healthy appearing, no acute distress, well developed and alert HEENT Head: Yes normal to inspection, Yes normocephalic and Yes atraumatic Mouth: moist mucous membranes Eyes General: appearance normal, both eyes and all related structures EOM: EOMs intact bilaterally Chest Other: no audible wheezing. Resp Other: No audible wheezing Effort & Inspection: normal respiratory effort Cardio Other: Radial pulse palpable with no rythmic abnormalities Back/Spine/Pelvis Cervical Spine: normal cervical lordosis Skin General skin exam: no rashes or lesions noted Neuro General: no focal motor deficits Extrem Other: Visual inspection: There is no atrophy of the rotator cuff or shoulder girdle musculature compared to the contralateral side. Tenderness: There is no tenderness to palpation ROM: Full range of motion Negative he can Negative sulcus Prominent distal clavicle with a mild piano carrillo sign. Psych Appearance: grossly normal and well kempt Mental Status: mental status grossly normal Speech and movement: Normal speech and movement present Affect: normal affect Attitude: cooperative Results Reviewed Results Reviewed: I personally reviewed relevant radiographs. Bilateral Zanca views with and without weight demonstrate a type 2 AC joint separation Assessment & Plan Assessment & Plan (1) Injury of right acromioclavicular joint: Code(s): S49.91XA - Unspecified injury of right shoulder and upper arm, initial encounter Category: Medical Plan: This is a 30-year-old with a type 2 AC joint separation. He feels like his shoulder girdle is different from his contralateral side and I explained to him that it is. That is feeling is correct that there is difference between the 2 shoulders after his injury. Unfortunately I do not think it can be rectified with surgery. I believe that he would benefit from physical therapy. I discussed the importance of scapular stabilization and I reassured him that I do not think this should limit him. He can return to see me if he needs to. In the meantime I wrote him a prescription for physical therapy. Orders: Orders XR Shoulder Clayton 1V Today S49.91XA - Unspecified injury of right shoulder and upper arm, initial encounter PT Evaluation and Treatment Today S49.91XA - Unspecified injury of right shoulder and upper arm, initial encounter XR AC joint BI Today S49.91XA - Unspecified injury of right shoulder and upper arm, initial encounter Coding Level of Care Code New Pt Level 3 (27190) Diagnoses Injury of right acromioclavicular joint S49.91XA
[2025-06-05 08:55] VITALS: BMI 28.3
--- OUTSIDE RECORDS SUMMARY | 2025-06-05 09:25 | XMS_ITS | Clinical Summary ---
Author Organization [facility] Address [address] [place] [address] Care Team Providers Care Bait Maker Name Role Phone Flo Hobbs MD Primary [...] complete [place] [id number] [facility] Care Teams Bait Maker Relationship Specialty Start Date End Date Flo Hobbs MD [address] [place] [address] PCP - General Family Medicine 04/04/24
--- OUTSIDE RECORDS SUMMARY | 2025-06-05 09:25 | XMS_ITS | Clinical Summary ---
Author Organization [facility] ity Address [address] [place] [address] Care Team Providers Care Pump House Technician Name Role Phone Unavailable Primary Care Provider [...]
== END 2025-06-05 10:26 | disposition home or self-care (01) ==
LOC: HO.HOS 08:51
PROVIDERS: PCP Nurse Practitioner Family; Visit Provider Orthopaedic Surgery
DX: S49.91XA Unspecified injury of right shoulder and upper arm, initial encounter (principal)
CPT/HCPCS: 99203

== ENCOUNTER 2025-06-05 08:49 | Outpatient (REF) | payer OTHER, SELFPAY ==
--- NOTE | ~2025-06-05 | XR_ITS ---
EXAMINATION: XR ACROMIOCLAVICULAR JOINTS CLINICAL INFORMATION: S49.91XA - Unspecified injury of right shoulder and upper arm, initial e... COMPARISON: None available. TECHNIQUE: AP and cephalad angulated AP views of the acromioclavicular joints. FINDINGS: Right AC joint: There is widening of the joint space and mild elevation of the distal clavicle relative to acromion. The left AC joint is intact and not degenerated. XR/XR AC joint BI IMPRESSION: The right AC joint is widening which could be related to prior resection of distal clavicle versus remote acro-osteolysis. There is also mild elevation of the clavicle consistent with type II or III AC joint separation. The left AC joint is unremarkable. Electronically signed by: Claus Rodriguez MD 06/05/2025 11:37 AM EDT
== END 2025-06-05 08:50 | disposition home or self-care (01) ==
LOC: HO.HOSX 08:49
PROVIDERS: PCP Nurse Practitioner Family; Visit Provider Orthopaedic Surgery
DX: M25.511 Pain in right shoulder (principal); S49.91XA Unspecified injury of right shoulder and upper arm, initial encounter; G47.19 Other hypersomnia; R53.83 Other fatigue; K21.9 Gastro-esophageal reflux disease without esophagitis; E78.6 Lipoprotein deficiency; M24.811 Other specific joint derangements of right shoulder, not elsewhere classified; V09.9XXA Pedestrian injured in unspecified transport accident, initial encounter
CPT/HCPCS: 73050

== ENCOUNTER → 2025-06-05 09:36 | Outpatient (BNV) | payer OTHER, SELFPAY | PROVIDERS: PCP Nurse Practitioner Family; Visit Provider Radiology Diagnostic Radiology | DX: S43.111A Subluxation of right acromioclavicular joint, initial encounter (principal) | CPT/HCPCS: 73050 ==

== ENCOUNTER 2025-06-05 14:05 | Outpatient (AMB) | payer OTHER, SELFPAY ==
[2025-06-05 14:10] VITALS: BP 118/72; PULSE 79; O2SAT 97
--- NOTE | 2025-06-05 14:10 | MHC.OFFVIS ---
Vital Signs 06/05/25 14:10 Height 6 ft Weight 221 lb BMI 30.0 BP 118/72 Blood Pressure Location Lt brachial Pulse 79 Pulse Source Pulse Oximeter Pulse Oximetry (%) 97 Oxygen Delivery Method Room Air Intake Visit Reasons: INP-[place] Intake Note: Patient presents [facility] [place]. Diagnosis of obstructive sleep apnea, notably characterized by snoring and episodes of apnea observed by his partner during sleep. Partner stated gasping but patient doesnt notice. Ho hx of sleep studies. Accompanied by: Self / Same As Patient Allergies No Known Allergies Allergy (Verified 06/05/25 14:13) HPI Comments Details: 30 year old male referred to us for evaluation of sleep apnea per his pcp Flo Hobbs. He goes to bed at 9:30 and wakes up at 5am. He naps through out the day. His partners says he snores and gasps for air as if he is holding his breath. He falls asleep at lunch in his truck, he always is fatigued. He is a new construction equipment operator. 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 He denies TMJ pain. He says his blood pressure is elevated when under stressed, now managed with diet and lifestyle. His mood and memory are stable. Denies RLS, numbness, tingling. Denies smoking and drinks socially. [facility] Social History Housing: House Patient Tobacco Use Status: Former Tobacco user e-Cigarette/Vaping Use: Never Used Second Hand Smoke Exposure: Yes service: No Current occupational status: employed Current occupational exposures/hazards: No Cognitive needs: No Hearing needs: No Vision needs: No Physical Exam Vital Signs: Last Vital Signs Pulse 79 06/05/25 14:10 BP 118/72 06/05/25 14:10 Pulse Ox 97 06/05/25 14:10 Oxygen Delivery Method Room Air 06/05/25 14:10 BMI result Body Mass Index 30.0 Const General: cooperative, comfortable and no acute distress Orientation/consciousness: patient oriented x3 HEENT Face and sinus: Yes face symmetric Teeth and gingiva: other (mallampti score 2) Eyes Pupils: Equal, round and reactive pupils present Neck Neck: Yes full ROM Resp Effort & Inspection: normal respiratory effort and able to speak in complete sentences Neuro General: patient oriented x3 and moves all extremities Cranial nerves: Yes Equal, round and reactive pupils present, Yes Normal accommodation reflex present, Yes Normal facial strength present, Yes Midline tongue present, Yes Ability to bilaterally rotate head present and Yes Ability to bilaterally elevate shoulders present Cognition (Neuro): normal cognition Gait exam (Neuro): Normal gait present Motor exam (neuro): 5/5 motor strength present throughout and Normal motor muscle tone present throughout Psych Appearance: grossly normal Mental Status: mental status grossly normal Thought process: Normal thought process present Thought content: Normal thought content present Results Reviewed Results Reviewed: Labs reviewed with pt. Assessment & Plan Assessment & Plan (1) Excessive daytime sleepiness: Code(s): G47.19 - Other hypersomnia Category: Medical (2) Fatigue due to sleep pattern disturbance: Code(s): R53.83 - Other fatigue; G47.9 - Sleep disorder, unspecified Category: Medical Plan HST to r/o [place]. Labs to r/o fatigue currently takes b12 vit d, franky, zinc magnesium, HDL is low, increase omega 3s to increase HDL. Patient Instructions: Sleep Hygiene provided: set a scheduled bedtime and wake time to help regulate the circadian rhythm and balance the release of pituitary hormones. Sleep in a dark room, temperatures below 68 degrees, and no devices n bed. Limit caffeinated products 6 hours prior to bed, and limit fluids 2-4 hours prior to bed. Gentle night yoga, diffusing essential oils, and playing soft music can be relaxing. Coding Level of Care Code New Pt Level 4 (87145) Diagnoses Excessive daytime sleepiness G47.19 Fatigue due to sleep pattern disturbance R53.83; G47.9 Time Spent (min) 30 Comment Evaluation of [place] Sleep Questionnaire Difficulty falling asleep: Yes Difficulty staying asleep?: No Number of arousals: 2x Snoring: Yes Witnessed apneas: Yes Gasping arousals: Yes Nocturia: No GERD: Yes (managed with lifestyle and diet) Vivid dreams: Yes Acting out dreams: No Abnormal behavior in sleep: No Abnormal movements in sleep: No Morning headaches: No Excessive daytime sleepiness: Yes Daytime naps: Yes Restless legs: Yes Hallucinations: No Sleep paralysis: No Drop attacks: No Sleep Study: No CPAP: No
== END 2025-06-05 14:44 | disposition home or self-care (01) ==
LOC: HO.HSMS 14:06
PROVIDERS: PCP Nurse Practitioner Family; Visit Provider Physician Assistant Medical
DX: G47.19 Other hypersomnia (principal); R53.83 Other fatigue; G47.9 Sleep disorder, unspecified
CPT/HCPCS: 99204